=== PATIENT | male | born 1940 | race Caucasian/White ===

== ENCOUNTER 2020-03-20 04:54 | Emergency (ER) | payer BC, MEDICARE ==
[2020-03-20 05:47] LABS: Hemoglobin 5.4 g/dL (14.0-18.0); Mean Corpuscular HGB CONC 28.9 g/dL (32.0-36.0); Mean Corpuscular Hemoglobin 21.1 pg (27.0-31.0); Mean Corpuscular Volume 72.8 fL (78.0-98.0); Mean Platelet Volume 6.4 fL (7.4-10.4); Platelet Count 361 thou/uL (130-400); RBC Distribution Width 16.4 % (11.5-14.5); Red Blood Cell (RBC) Count 2.57 mill/uL (4.70-6.10); White Blood Cell (WBC) Count 16.1 thou/uL (4.8-10.8)
[2020-03-20 05:53] LABS: INR-International Normal Ratio 1.3; PTT 30.6 sec (22.9-36.1)
[2020-03-20 06:02] LABS: #Basophils 0.1 thou/uL (0.0-0.2); #Lymphocytes 0.3 thou/uL (1.20-3.40); #Monocytes 1.5 thou/uL (0.11-0.59); #Neutrophils 14.2 thou/uL (1.40-6.50); %Basophils 0.3 % (0.0-1.0); %Lymphocytes 1.7 % (21.0-51.0); %Monocytes 9.4 % (0.0-10.0); %Neutrophils 88.6 % (42.0-75.0); Hypochromia MODERATE=16-30 cells (100X) (0-5/hpf); MDiff Complete? YES; Microcytosis SLIGHT = 6-15 cells (100X) (0-5/hpf); Platelet Morphology Comment Appears Adequate; Schistocytes SLIGHT = 2-5 cells (100X) (0-1/hpf)
[2020-03-20 06:03] LABS: ALT (SGPT) 8 U/L (8-55); AST (SGOT) 26 U/L (5-34); Albumin 2.7 g/dL (3.4-4.8); Alkaline Phosphatase 75 U/L (40-110); Anion Gap 21 mmol/L (10-20); BUN (Urea Nitrogen) 6 mg/dL (8.4-25.7); Bilirubin, Total 0.3 mg/dL (0.2-1.2); Calc. Creatinine Clearance 0 mL/min (70-130); Carbon Dioxide 16 mmol/L (23-31); Chloride 92 mmol/L (98-107); Estimated GFR-MDRD 82; Globulin 3.8 g/dL (2.4-3.5); Glucose 133 mg/dL (83-110); Potassium 4.6 mmol/L (3.5-5.1); Protein, Total 6.5 g/dL (5.8-8.1); Sodium 124 mmol/L (136-145)
[2020-03-20 06:56] LABS: Alcohol Less than 10 mg/dL (Less than 10)
[2020-03-20 07:15] LABS: CKMB 2.3 ng/mL (0-6.6)
--- NOTE | 2020-03-20 07:35 | CT ---
CT OF THE BRAIN WITHOUT CONTRAST: Date: 03/20/2020 COMPARISON: Fell down stairs with head trauma. HISTORY: Fall from wheelchair, with headache. TECHNIQUE: Multiple contiguous axial images were obtained in a CT of the brain without contrast. FINDINGS: The brain demonstrates atrophy without focal lesions or confluent areas of infarction. There are a fe w scattered hypodensities in the subcortical and periventricular white matter, likely secondary to sm all vessel ischemic disease. There is no evidence of hydrocephalus, intracranial hemorrhage, or extra -axial fluid collection. There is soft tissue swelling of the forehead. There is fluid in the bilateral maxillary sinuses. The other paranasal sinuses and mastoid air cells are well aerated. There may be left nasal bone fracture. IMPRESSION: 1. No evidence of acute intracranial abnormality. 2. Possible left nasal bone fracture. CT of face recommended for further evaluation. POS: YOLI
--- NOTE | 2020-03-20 07:38 | CT ---
CT OF THE CERVICAL SPINE WITHOUT CONTRAST: DATE: 03/20/2020 COMPARISON: None. HISTORY: Fall down stairs with head trauma and neck pain. TECHNIQUE: Multiple contiguous axial images were obtained in a CT of the cervical spine without contrast. Sagitt al and coronal reformats were performed. FINDINGS: The vertebral bodies demonstrate normal height and alignment without acute fracture or subluxation. M ild degenerative changes are seen throughout the cervical spine. No prevertebral soft tissue swelling is present. There are subtle air space opacities in the right upper lobe of the lungs. Fluid is seen in the esoph apurva, which is mildly dilated. Atherosclerotic calcifications are seen in the carotid arteries. IMPRESSION: No evidence of acute osseous abnormality of the cervical spine. POS: EAA
[2020-03-20] MEDS ORDERED: Sodium Chloride 0.9% 1,000 ML BAG ONE ×2 (08:33→08:49)
--- NOTE | 2020-03-20 08:39 | CT ---
CT OF THE CHEST WITH CONTRAST CT ABDOMEN AND PELVIS WITH CONTRAST LIMITED CTS OF THORACIC AND LUMBOSACRAL SPINES WITH CONTRAST: HISTORY: Fall down stairs with head trauma. Chest pain, abdominal pain, and back pain. TECHNIQUE: 1. Multiple contiguous axial images were obtained in a CT of the chest with contrast. Sagittal and coronal reformats were performed. 2. Multiple contiguous axial images were obtained in a CT of the abdomen and pelvis with contrast. Sagittal and coronal reformats were performed. 3. Limited CTs of the thoracic and lumbosacral spines were performed. Sagittal and coronal reformat s were created based off images obtained in the chest, abdomen, and pelvic CTs. FINDINGS: CT CHEST: Atelectasis is seen in both lung bases. There are small bilateral pleural effusions. There are subt le areas of airspace opacity in the right upper lobe which are nonspecific. The esophagus is distended and fluid-filled. No hilar or mediastinal lymphadenopathy are seen. Ther e are calcified right hilar and mediastinal lymph nodes. The heart is normal in size. Calcification s are seen in the coronary arteries and aorta. The chest wall soft tissues are unremarkable. There is a fracture of the left anterolateral 4th rib and the left posterolateral 5th to 8th ribs. CT ABDOMEN/PELVIS: The liver is cirrhotic. There is a moderate amount of ascites. Calcified gallstones are seen in the gallbladder. The kidneys, adrenal glands, spleen, and pancreas are unremarkable. No free air is se en in the abdomen or pelvis. The large and small bowel are unremarkable. Atherosclerotic calcifications are seen in the aorta. The abdominal soft tissues are unremarkable. The bones in the pelvis are unremarkable. LIMITED CT OF THE THORACIC AND LUMBOSACRAL SPINE: There are mild degenerative changes throughout the spine. The vertebral bodies demonstrate height an d alignment without acute fracture or subluxation. No prevertebral soft tissue swelling is seen. IMPRESSION: 1. Left-sided rib fractures. 2. Small bilateral pleural effusions with adjacent atelectasis. 3. Subtle areas of ground-glass attenuation/airspace opacity in the right upper lobe. This could be secondary to infectious process or secondary to aspiration, particularly given the distended fluid-f illed esophagus. 4. Cirrhosis with sequelae of portal hypertension. 5. Cholelithiasis. 6. No evidence of acute intraabdominal/pelvic abnormality. 7. No evidence of acute osseous abnormality of the thoracic and lumbosacral spine. POS: EAA
[2020-03-20] MEDS ORDERED: Iopamidol 370 76% 100 ML VIAL ONE (10:06)
== END 2020-03-20 06:08 | disposition short-term general hospital (02) ==
LOC: MADERS 04:54
DX: T79.4XXA Traumatic shock, initial encounter (principal); S02.2XXB Fracture of nasal bones, initial encounter for open fracture; S22.42XA Multiple fractures of ribs, left side, initial encounter for closed fracture; S41.112A Laceration without foreign body of left upper arm, initial encounter; S81.811A Laceration without foreign body, right lower leg, initial encounter; S50.812A Abrasion of left forearm, initial encounter; S49.92XA Unspecified injury of left shoulder and upper arm, initial encounter; K94.01 Colostomy hemorrhage; D50.0 Iron deficiency anemia secondary to blood loss (chronic); F17.220 Nicotine dependence, chewing tobacco, uncomplicated; W10.9XXA Fall (on) (from) unspecified stairs and steps, initial encounter
CPT/HCPCS: 36430; 70450; 71260; 72125; 74177; 80053; 80307; 82553; 83605; 83735; 83880; 84484; 85025; 85610; 85730; 86850; 86900; 86901; 86920; G0390; P9016; J7050; Q9967